=== PATIENT | female | born 1980 | race Caucasian/White ===

== ENCOUNTER 2016-11-24 12:00 | Inpatient (IN) ==
[2016-11-26] MEDS ORDERED: Clindamycin 900 MG/50 ML 900 MG/50 ML IV.SOLN IVPB ONE (10:36)
[2016-11-26] MEDS ORDERED: Famotidine 20 MG/2 ML VIAL IVP ONE (10:36)
[2016-11-26] MEDS ORDERED: Gentamicin 410 MG in 0.9 % Sodium Chloride 100 ML IVPB ONE (10:36)
[2016-11-26] MEDS ORDERED: Metoclopramide 10 MG/2 ML VIAL IVP ONE (10:36)
[2016-11-26] MEDS ORDERED: Oxytocin 20 units/ LR 1000 mL 20 UNIT/1,000 ML BAG IVC SCH ×2 (10:45→17:29)
[2016-11-26] MEDS ORDERED: Ringers Solution, Lactated 1,000 ML IVC SCH (10:45)
--- NOTE | 2016-11-26 10:47 | OB/GYN History & Physical ---
Date of Encounter: 11/26/16 Time of Encounter: 10:43 Assessment and Plan (1) 39 weeks gestation of Current visit: Yes Status: Chronic (2) Advanced maternal age (AMA) in Current visit: Yes Status: Chronic (3) Previous section complicating Current visit: Yes Status: Chronic Informed consent obtained in the office for repeat with tubal ligation. (4) Encounter for sterilization Current visit: Yes Status: Acute History of Present Illness Chief complaint: scheduled repeat c/s HPI: Ms. Bauer is a 36 year old female G 4 P 3-0-0-3 at 39 4/7 weeks admitted for scheduled repeat delivery with BPS. She denies any contractions, leaking of fluid, or vaginal bleeding. She reports good movement. She is certain she does not desire future fertility and wants permanent sterilization. Preganncy has been complicated by advanced maternal age, obesity, and previous x 2 Past Med Surg Social Fam HX - Past Medical History Source: patient Medical history: no medical history Psychiatric history: anxiety, depression - Past Surgical History Surgical History: , other (ovarian cystectomy, breast lumpectomy ( benign), tonsillectomy, wisdom teeth) - Social History Smoking Status: Never smoker Alcohol use: none Drug use: none - Family History Mother Living Status: Still Living Hx Family Cardiac Disorders: Yes Hx Family Respiratory Disorders: No Hx Family Cancer: No Hx Family GI Disorders: No Hx Family Endocrine Disorder: No Hx Family Neuromuscular Disorders: No Hx Family Neurologic Disorders: No Hx Family HEENT Disorders: No Hx Family Autoimmune Disorders: No Obstetrical History - Pregnancies : 4 Para: 3 Term: 3 Livin - History/Complications History/Complications: pre-eclampsia in first Medications and Allergies Caplet 1 cap PO DAILY 03/18/15 [History] 3 Allergy/AdvReac Type Severity Reaction Status Date / Time Penicillins AdvReac Rash Verified 03/20/15 08:06 Review of System OB All systems PM: reviewed and no additional remarkable complaints except as stated Exam - Constitutional Constitutional: well developed, well nourished, no acute distress - HEENT HEENT: EOMI, Mucus Membranes Moist - Lungs Respiratory exam: CTAB - Cardiovascular Cardiovascular exam: RRR - Abdomen Abdomen: Present: bowel sounds normal, gravid, non tender - Extremities Extremities exam: pedal edema Results All other labs normal. - VTE Reasons for not Prescribing Prophylaxis: Treatment not Indicated - Low risk for VTE
[2016-11-26 10:53] LABS: Basophils % 0.2 %; Eosinophils % 0.5 %; Hemoglobin 13.5 g/dL (11.5-15.4); Immature Granulocytes % 0.3 % (0-4); Lymphocytes # 1.1 K/mcL (0.6-4.6); Lymphocytes % 17.8 %; Mean Corpuscular HGB Conc 34.6 g/dL (31.6-35.5); Mean Corpuscular Hemoglobin 32.5 pg (28.0-33.3); Mean Platelet Volume 10.3 fL (9.4-12.4); Monocytes # 0.4 K/mcL (0.0-1.3); Monocytes % 6.1 %; Neutrophils # 4.8 K/mcL (1.6-8.9); Platelet Count 161 K/mcL (140-400); Red Blood Count 4.15 M/mcL (3.82-4.97); Red Cell Distribution Width 12.9 % (11.5-14.5); Segmented Neutrophils % 75.1 %
--- NOTE | 2016-11-26 10:57 | Anesthesia Evaluation PreOp ---
Date of Encounter: 11/26/16 Time of Encounter: 10:50 - Past History Planned Operation: Repeat CSection Cardiac History: Denies any Significant Hx Pulmonary History: Denies Any Significant HX ELECTROENCEPHALOGRAPHIC TECHNOLOGIST History: Denies Any Significant HX Other Medical History: Denies Any Significant HX Anesthesia History: No Prior Anesthetic Complications, Past Anesthesia ( CSectionx2) : Yes Alcohol Use: none Drug use: none Medications and Allergies Caplet 1 cap PO DAILY 03/18/15 [History] 3 Allergy/AdvReac Type Severity Reaction Status Date / Time Penicillins AdvReac Rash Verified 03/20/15 08:06 - Meds/Allergy Pre-op Review Medications Reviewed: Yes Allergies Reviewed: Yes Beta Blockers on Current Med List: No Anesthesia Results - Labs 11/26/16 10:30 Anesthesia Exam Height: 67" Weight: 114.6kg NPO (# of Hours): >8hr Pain Scale: 0 Pain Scale Used: Numeric (1 - 10) - HEENT Pupil (Motor): Pupils equal Mallampati: I Teeth: Normal Oral Opening: Greater than 3 - ELECTROENCEPHALOGRAPHIC TECHNOLOGIST LOC: Oriented ELECTROENCEPHALOGRAPHIC TECHNOLOGIST Motor: Normal RUE, Normal LUE, Normal RLE, Normal LLE, Normal Face ELECTROENCEPHALOGRAPHIC TECHNOLOGIST Sensory: Normal: RUE, LUE, RLE, LLE, Face - Cardiac Rhythm: Regular Murmur: None JVD: No Carotid Bruit: No - Pulmonary Breath Sounds: bilateral Clear Respiratory Effort: Symmetrical Anesthesia Assess/Plan ASA Score: 2 Modified Marta Scale for Level of Consciousness: Cooperative, oriented, and tranquil Anesthetic Plan: Regional Autologous Blood: Yes Monitoring Plan: Standard Monitors Recovery Plan: PACU
[2016-11-26] MEDS ORDERED: *HR* Morphine Sulfate/PF 5 MG/10 ML AMPUL ONE (11:00)
[2016-11-26] MEDS ORDERED: *HR* FentaNYL (PF) 100 MCG/2 ML VIAL ONE (11:00)
[2016-11-26] MEDS ORDERED: *HR* Oxytocin 10 UNIT/ML VIAL IM ONE ×2 (11:00→12:46)
[2016-11-26] MEDS ORDERED: *HR* Phenylephrine 10 MG/ML VIAL ONE (11:01)
[2016-11-26] MEDS ORDERED: Naloxone 0.4 MG/ML INJ IVP PRN (12:27)
[2016-11-26] MEDS ORDERED: Ondansetron 4 MG/2 ML VIAL IVP PRN ×2 (12:27→17:29)
[2016-11-26] MEDS ORDERED: *HR* HYDROmorphone (PF) 1 MG/ML SYRINGE IVP PRN (12:27)
[2016-11-26] MEDS ORDERED: Ringers Solution, Lactated 2,000 ML ONE (12:45)
--- NOTE | 2016-11-26 13:16 | OB/GYN Procedure Note ---
Section - Date of procedure: 11/26/16 Preop diagnosis: desires repeat Post-op diagnosis: same Procedure: section, repeat low transverse, bilateral tubal ligation Surgeon: Jasmine Cadena Estimated blood loss (cc): 400 Slurry Man: Ilya Lion Maritime Guard: Archie Skelton Anesthesia Type: Spinal section complications: none Disposition: L&D Recovery Room Specimens: Right tube segment, Left tube segment - Infant (s) A Delivery Date: 11/26/16 Delivery Time: 12:22 Presentation: vertex Position: LOP Gender: Male Viability: Viable Pounds: 9 Ounces: 2 Gram Weight: 4.135 kg at 1 minute: 9 at 5 minutes: 9 Shoulder Dystocia: not encountered Placenta: spontaneous Cord: nuchal cord, 3 umbilical vessels, nuchal reduced - Narrative Narrative: Patient was taken to the operative suite and placed under spinal anesthetic. She was then prepped and draped in normal sterile fashion in the dorsal supine position. Timeout was then performed. Antibiotics were given at room time. SCDs are on and active. Pfannenstiel skin incision is then made and carried through to underlying layer of fascia with the Bovie. The fascia was then incised in the midline and incision extended laterally with the [place] scissors. The fascia was tented up and dissected off the rectus muscles sharply. The rectus muscles were in the midline and the peritoneum was tented up and entered sharply with the Metzenbaum scissors. The peritoneal incision was then extended bluntly. The bladder blade was then inserted. A low transverse uterine incision was then made. The infant vertex was brought to the incision and the infant was delivered using fundal pressure. There was no nuchal cord. Cord was clamped and cut. Infant was handed to waiting nursery staff. Placenta delivered spontaneously complete and intact with a three-vessel cord. The uterus was cleared of all clots and debris using moist laparotomy sponge. The uterine incision was then closed using 0 Vicryl in a running locked fashion. Attention was then turned to the patient's tubes. The right tube was then grasped in the midportion, and a knuckle of the tube was double suture ligated using O plain gut and transected. Hemostasis is assured. The left tube in a similar fashion as then grasped in the midportion, and a knuckle is double suture ligated using plain gut and transected. The abdomen was then cleared of all clots and debris using copious irrigation. The fascial incision was then closed using 0 Vicryl in a running fashion. The skin was closed using 4-0 Vicryl in a subcuticular fashion. Steri-Strips and sterile dressing are then placed. Mother and infant taken to recovery in stable condition.
[2016-11-26] MEDS ORDERED: Acetaminophen 325 MG TABLET PO PRN (17:29)
[2016-11-26] MEDS ORDERED: *HR* OxyCODONE/APAP 5/325 TABLET PO PRN (17:29)
[2016-11-26] MEDS ORDERED: Simethicone 80 MG TAB.CHEW PO PRN (17:29)
[2016-11-26] MEDS ORDERED: Metoclopramide 10 MG/2 ML VIAL IVP PRN (17:29)
[2016-11-26] MEDS ORDERED: Sennosides 8.6 MG TABLET PO PRN (17:29)
--- NOTE | 2016-11-26 19:10 | Anesthesia Evaluation Post Op ---
Date of Encounter: 11/26/16 Time of Encounter: 14:45 - Vital Signs Vital Signs: Vital Signs - 8 hr 11/26/16 15:30 11/26/16 16:00 11/26/16 16:30 Temperature 97.7 F 97.9 F 97.9 F Pulse Rate 71 62 79 Respiratory Rate 16 16 16 Blood Pressure 120/72 122/76 124/54 O2 Sat by Pulse Oximetry 99 98 97 11/26/16 17:30 11/26/16 17:35 11/26/16 18:30 Temperature 97.6 F 97.6 F 98.4 F Pulse Rate 68 88 Respiratory Rate 16 16 16 Blood Pressure 113/63 122/75 O2 Sat by Pulse Oximetry 96 96 11/26/16 19:00 Temperature 98.4 F Pulse Rate Respiratory Rate 16 Blood Pressure 122/75 O2 Sat by Pulse Oximetry - Lungs Lungs: Clear Ascult./Percussion - Airway Airway: Non-obstructed - Cardiovascular Regular Rate (PVCs) - Mental Status Mental Status: Alert & Oriented, Answers Appropriately - Nausea Vomiting Nausea Vomiting: Not Present - Hydration Hydration: Ice chips, Perry catheter - Discharge PostOp Status: Transfer Patient to floor Attestation: Patient meets discharge criteria. [id number]
[2016-11-26] MEDS: Ibuprofen 600 MG TABLET PO PRN (21:44)
[2016-11-27] MEDS: Ibuprofen 600 MG TABLET PO PRN ×4 (04:08→22:34)
[2016-11-27] MEDS: Prenatal Vit/FA 1 EACH TABLET PO SCH (10:07)
--- NOTE | 2016-11-27 11:29 | OB/GYN Progress Note ---
Date of Encounter: 11/27/16 Time of Encounter: 11:24 - Assessment and Plan (1) Status post repeat low transverse section Current Visit: Yes Status: Acute Continue routine post-op/ care Anticipate discharge home POD day 2 or 3 Subjective - Subjective Principal diagnosis: Scheduled C/S Interval history: S/P repeat C/S Day 1 Doing well Pain well controlled Tolerating oral diet well Voiding and passing flatus without difficulty Lochia light and without clots Anticipate discharge home on POD 2 or 3. Patient reports: appetite normal, voiding normally, pain well controlled, ambulating normally : doing well, nursing well (and pumping) Objective - Vital Signs Latest vital signs: Vital Signs Temp Pulse Resp BP Pulse Ox 11/27/16 10:28 16 11/27/16 07:30 98.1 F 67 16 118/75 11/27/16 03:30 98.6 F 78 16 128/69 97 11/26/16 23:34 97.6 F 69 16 98/62 98 11/26/16 19:55 98.3 F 74 16 114/72 97 11/26/16 19:00 98.4 F 16 122/75 11/26/16 18:30 98.4 F 88 16 122/75 96 11/26/16 17:35 97.6 F 16 11/26/16 17:30 97.6 F 68 16 113/63 96 11/26/16 16:30 97.9 F 79 16 124/54 97 11/26/16 16:00 97.9 F 62 16 122/76 98 11/26/16 15:30 97.7 F 71 16 120/72 99 Intake and Output 11/26/16 11/27/16 11/27/16 23:59 07:59 15:59 Intake Total 780 / 780 520 / 520 Output Total 100 / 100 1260 / 1260 Balance -100 / -100 -480 / -480 520 / 520 Intake: Oral 780 / 780 520 / 520 Output: Urine 200 / 200 Catheter 100 / 100 1060 / 1060 Other: Meal Breakfast Percent of Meal Consumed 100% Weight 108.862 kg Patient Weight 11/27/16 23:59 Weight 108.862 kg - Exam Lungs: bilateral: normal Chest: Normal S1, Normal S2 Extremities: Present: normal Abdomen: Present: normal appearance, soft. Absent: gravid Incision: Present: dry (Dressing C/D/I) Uterus: Present: normal, firm Fundal Height: 2 (U/2)
[2016-11-28] MEDS: Ibuprofen 600 MG TABLET PO PRN (04:56)
[2016-11-28] MEDS: Prenatal Vit/FA 1 EACH TABLET PO SCH (07:50)
[2016-11-28 07:54] VITALS: BP 122/83
--- NOTE | 2016-11-28 10:44 | Discharge Summary ---
Date of Encounter: 11/28/16 Time of Encounter: 10:44 - Discharge Diagnosis (1) Encounter for sterilization Priority: Secondary Status: Acute (2) Delivered by section Priority: Primary Status: Acute Comments: Doing well without c/o. Will d/c home. - Discharge Medications Prescriptions: OxyCODONE/APAP 5/325 [Percocet 5/325 MG] 1 each PO Q4HR PRN #40 tab PRN Reason: post op pain Ibuprofen [Motrin] 600 mg PO Q6HR PRN #40 tab PRN Reason: post op pain Home Medications: Caplet 1 cap PO DAILY 03/18/15 [History] Fish Oil Gummies 1 tab PO DAILY 11/26/16 [History] Ibuprofen [Motrin] 600 mg PO Q6HR PRN #40 tab 11/28/16 [Rx] OxyCODONE/APAP 5/325 [Percocet 5/325 MG] 1 each PO Q4HR PRN #40 tab 11/28/16 [Rx ] Allergies/Adverse Reactions: 3 Allergy/AdvReac Type Severity Reaction Status Date / Time Penicillins AdvReac Rash Verified 03/20/15 08:06 Data Procedures and tests throughout hospitalization: Laboratory Tests 11/26/16 10:30 WBC 6.4 RBC 4.15 Hgb 13.5 Hct 39.0 MCV 94.0 MCH 32.5 MCHC 34.6 RDW 12.9 Plt Count 161 MPV 10.3 Immature Gran % 0.3 Seg Neutrophils % 75.1 Lymphocytes % 17.8 Monocytes % 6.1 Eosinophils % 0.5 Basophils % 0.2 Neutrophils # 4.8 Lymphocytes # 1.1 Monocytes # 0.4 Eosinophils # 0.0 Basophils # 0.0 - Impressions Doing well withut c/o. Regular diet without n/v. Percocet and Motrin is controlling pain. Ambulating Date of admission: 11/26/16 10:00 Primary care physician: PCP NONE - Patient Status Disposition: Home, Self-Care Condition: Good Functional capacity at discharge: independent ambulation Overall status at discharge: patient is progressing back to baseline - Discharge Instructions Follow Up With: Jasmine Cadena DO [Partnered Physician] - - Diet and Activity Activity: increase activity as tolerated Hospital Course LAY OUT FORMER Time Attestation: Total time spent providing and/or coordinating discharge services: Exam - Constitutional Vitals: Temp Pulse Resp BP Pulse Ox 97.4 F L 83 16 122/83 99 11/28/16 07:40 11/28/16 07:40 11/28/16 07:40 11/28/16 07:40 11/28/16 07:40 General appearance IM: A&O X 3 - Respiratory Respiratory exam: Present: CTAB - Cardiovascular Cardiovascular exam IM: Present: RRR - GI/Abdominal GI/Abdominal exam IM: normal bowel sounds Incision: normal, intact - Uterus Position: 2 Fingers Above Umbilicus - Extremities Exam Extremities exam IM: Present: full ROM - Neurological Exam Neurological exam: oriented X3 - VTE Reasons for not Prescribing Prophylaxis: Treatment not Indicated - Low risk for VTE Documentation of Mechanical Device: Intermittent pneumatic compression device
== END 2016-11-28 12:52 | disposition home or self-care (01) | DRG 766 ==
LOC: 1NENULAB 11-26 10:00 → 1NENUOBS 11-26 15:35
PROVIDERS: ADMIT Obstetrics & Gynecology; ATTEND Obstetrics & Gynecology